=== PATIENT | female | born 1980 | race American Indian/Alaskan Native ===

== ENCOUNTER 2018-07-07 18:51 | Emergency (ER) | payer MEDICAID ==
[2018-07-07] MEDS ORDERED: MOTRIN ONE (20:55)
[2018-07-07] MEDS ORDERED: MOTRIN PO ONE (20:55)
--- NOTE | 2018-07-07 23:13 | XRay Report ---
FINAL REPORT EXAM: XR CHEST 1V AP HISTORY: chest pain w/ cough, productive cough TECHNIQUE: Frontal portable view of the chest Comparison: None FINDINGS: There is no evidence of focal infiltrate, pneumothorax or pleural fluid collection. The cardiac silhouette is normal size. There is a right superior cardiomediastinal convexity of unclear etiology. This can be seen with aneurysms of the ascending thoracic aorta. The bony structures are unremarkable. IMPRESSION: 1. No evidence of an acute pulmonary process. 2. Right superior cardiomediastinal convexity of unclear etiology. This can be seen with aneurysms of the ascending thoracic aorta. PA and lateral views of the chest would be helpful to evaluate for the persistent nature of this finding. Alternatively CT of the chest would be helpful.
[2018-07-08] MEDS ORDERED: NACL 0.9% 1000 ML 1,000 ML IV ONE (00:58)
[2018-07-08] MEDS ORDERED: LIDOCAINE VISCOUS 2% PO ONE (00:58)
[2018-07-08] MEDS ORDERED: NACL 0.9% 1000 ML 2,000 ML IV ONE (00:58)
[2018-07-08] MEDS ORDERED: TYLENOL PO ONE (00:58)
[2018-07-08] MEDS ORDERED: TORADOL IV ONE (00:58)
[2018-07-08] MEDS ORDERED: DECADRON IV ONE (00:59)
--- NOTE | 2018-07-08 01:00 | Emergency Department Report ---
ED General Adult HPI - General Chief complaint: Upper Respiratory Infection Stated complaint: POSS FLU Time Seen by Provider: 07/08/18 00:44 Source: patient, RN notes reviewed Mode of arrival: Ambulatory Limitations: No Limitations - History of Present Illness Initial comments: This is a 37-year-old female who was not known to this provider previously, with the surgical history distantly for hysterectomy. She presents to the ED with a complaint of sore throat, spitting up, cough, subjective fever, body aches, and lower abdominal discomfort. She also has nasal congestion. Her symptoms have been going on for a day and a half. They're constant. They do not radiate anywhere. She denies exacerbating, relieving factors. She indicates positive sore throat, positive pain with swallowing, no dysuria, and no actual vomiting. She denies diarrhea. -: Gradual Location: face, mouth, abdomen, left, right, upper extremity, lower extremity Severity scale (0 -10): 10 Quality: aching Consistency: constant Improves with: medication, rest Worsens with: movement Associated Symptoms: cough, fever/chills, headaches, loss of appetite, malaise, weakness. denies: confusion, chest pain, diaphoresis, nausea/vomiting, rash, seizure, shortness of breath, syncope - Related Data Previous Rx's Medication Instructions Recorded Last Taken Type Acetaminophen [Tylenol Arthritis] 650 mg PO Q6HR PRN #30 tablet.er 07/08/18 Unknown Rx Ibuprofen [Motrin] 600 mg PO Q8H PRN #30 tablet 07/08/18 Unknown Rx Ondansetron [Zofran Odt] 4 mg PO Q8HR PRN #20 tab.rapdis 07/08/18 Unknown Rx Penicillin V Potassium 500 mg PO TID #30 tablet 07/08/18 Unknown Rx Allergies Allergy/AdvReac Type Severity Reaction Status Date / Time hydrocodone Allergy Nausea Verified 07/07/18 20:49 ED Review of Systems ROS: Stated complaint: POSS FLU Other details as noted in HPI Comment: All other systems reviewed and negative ED Past Medical Hx - Past Medical History Previous Medical History?: Yes Hx Asthma: Yes Additional medical history: sleep apnea - Surgical History Past Surgical History?: Yes Additional Surgical History: hysterectomy - Social History Smoking Status: Never Smoker Substance Use Type: None - Medications Home Medications: Home Medications Medication Instructions Recorded Confirmed Last Taken Type Acetaminophen [Tylenol Arthritis] 650 mg PO Q6HR PRN #30 tablet.er 07/08/18 Unknown Rx Ibuprofen [Motrin] 600 mg PO Q8H PRN #30 tablet 07/08/18 Unknown Rx Ondansetron [Zofran Odt] 4 mg PO Q8HR PRN #20 tab.rapdis 07/08/18 Unknown Rx Penicillin V Potassium 500 mg PO TID #30 tablet 07/08/18 Unknown Rx ED Physical Exam - General Limitations: No Limitations General appearance: alert, in no apparent distress - Head Head exam: Present: atraumatic, normocephalic - Eye Eye exam: Present: normal appearance, EOMI. Absent: nystagmus - ENT ENT exam: Present: mucous membranes moist, normal external ear exam, other ( patient has enlarged tonsils with exudates.). Absent: normal exam, normal orophraynx - Neck Neck exam: Present: normal inspection, full ROM, lymphadenopathy. Absent: tenderness, meningismus - Respiratory Respiratory exam: Present: normal lung sounds bilaterally. Absent: respiratory distress - Cardiovascular Cardiovascular Exam: Present: normal rhythm, tachycardia, normal heart sounds. Absent: systolic murmur, diastolic murmur, rubs, gallop - GI/Abdominal GI/Abdominal exam: Present: soft, normal bowel sounds. Absent: distended, tenderness, guarding, rebound, rigid - Extremities Exam Extremities exam: Present: normal inspection, full ROM, normal capillary refill , other (2+ pulses noted in the bilateral upper, lower extremities. Compartments soft. No long bony tenderness. The pelvis is stable.). Absent: tenderness, pedal edema, joint swelling, calf tenderness - Back Exam Back exam: Present: normal inspection, full ROM, paraspinal tenderness. Absent : tenderness, CVA tenderness (R), vertebral tenderness - Neurological Exam Neurological exam: Present: alert, oriented X3, CN II-XII intact, normal gait, other (Extraocular movements intact. Tongue midline. No facial droop. Facial sensation intact to light touch in the V1, V2, V3 distribution bilaterally. 5 and 5 strength in 4 extremities.. Sensation is intact to light touch in 4 extremities.). Absent: motor sensory deficit - Psychiatric Psychiatric exam: Present: normal affect, normal mood - Skin Skin exam: Present: warm, dry, intact, normal color. Absent: rash ED Course Vital Signs 07/07/18 07/08/18 20:44 01:22 Temperature 100.2 F H 98.4 F Pulse Rate 130 H 60 Respiratory 20 16 Rate Blood Pressure 136/95 Blood Pressure 110/71 [Right] O2 Sat by Pulse 100 Oximetry - Reevaluation(s) Reevaluation #1: 07/08/18 02:45 Patient is sleeping comfortably in the emergency department. Her tachycardia is resolved. She is tolerating liquid feeds. Her urinalysis is reviewed and appreciated. She does not endorse any irritative or obstructive urinary symptoms. This is most likely bacteriuria that is not symptomatic. In the unlikely event that patient has a concomitant UTI with strep pharyngitis , penicillin may cover it. She is suitable for discharge with outpatient follow -up. ED Medical Decision Making - Lab Data Vital Signs 07/07/18 07/08/18 20:44 01:22 Temperature 100.2 F H 98.4 F Pulse Rate 130 H 60 Respiratory 20 16 Rate Blood Pressure 136/95 Blood Pressure 110/71 [Right] O2 Sat by Pulse 100 Oximetry - Radiology Data Radiology results: report reviewed, image reviewed Two-view x-ray of the chest was negative for acute disease. - Medical Decision Making Differential diagnosis, including but not limited to: Strep, viral syndrome, pneumonia, urinary tract infection, influenza-like illness Assessment and plan: 37-year-old female with low-grade fever, tachycardia, body aches, no abdominal tenderness, supple neck, no meningeal signs, most likely strep. Patient had a positive strep screen. She was treated supportively and symptomatically with IV fluids, acetaminophen, Decadron, viscous lidocaine, ketorolac. She was initially tachycardic but felt improved. She is very well- appearing, has a full conversation with her and myself, and is nontoxic appearing and walks with a steady gait. Based on her history and physical, I do not suspect occult bacteremia. Patient will be discharged with appropriate pain medication, and penicillin. Critical care attestation.: If time is entered above; I have spent that time in minutes in the direct care of this critically ill patient, excluding procedure time. ED Disposition Clinical Impression: Pharyngitis Qualifiers: Pharyngitis/tonsillitis etiology: unspecified etiology Qualified Code(s): J02.9 - Acute pharyngitis, unspecified Disposition: DC-01 TO HOME OR SELFCARE Is pt being admited?: No Does the pt Need Aspirin: No Condition: Stable Instructions: Strep Throat (ED) Additional Instructions: Take the pain medication as needed/directed. Take nausea medication as needed/ directed. Take the antibiotics as directed. Do not return to work until cleared by a primary care doctor. Advance diet as tolerated, and drink plenty of fluids. Return to the ER right away with new pain, worsened pain, migration of pain, projectile vomiting, change in mental status, confusion, inability to tolerate liquid feeds. The urinalysis suggested bacteria in the urine. This is unlikely to be causing patient's symptoms, however patient should follow-up with her primary care doctor within the next 7-10 days for repeat evaluation. Prescriptions: Acetaminophen [Tylenol Arthritis] 650 mg PO Q6HR PRN #30 tablet.er PRN Reason: Pain Ibuprofen [Motrin] 600 mg PO Q8H PRN #30 tablet PRN Reason: Pain Ondansetron [Zofran Odt] 4 mg PO Q8HR PRN #20 tab.rapdis PRN Reason: Nausea Penicillin V Potassium 500 mg PO TID #30 tablet Referrals: [facility] [Provider Group] - 3-5 Days
[2018-07-08] MEDS ORDERED: MOTRIN ONE (01:36)
--- NOTE | 2018-07-08 02:21 | XRay Report ---
FINAL REPORT EXAM: XR CHEST ROUTINE 2V HISTORY: cough fever TECHNIQUE: 2 views of the chest. PRIORS: Portable chest performed earlier on the same day FINDINGS: The cardiomediastinal silhouette appears normal. The lungs are clear. The bones and soft tissues are unremarkable. IMPRESSION: No evidence of acute cardiopulmonary disease
[2018-07-08 02:30] LABS: Bacteria,Urine 2+ /HPF (Negative); Bilirubin,Urine NEG (Negative); Blood,Urine NEG (Negative); Mucus,Urine 3+ /HPF
[2018-07-08 02:32] LABS: Color,Urine Yellow (Yellow)
[2018-07-08 02:53] VITALS: BP 130/90
== END 2018-07-08 03:18 | disposition home or self-care (01) ==
LOC: ED 18:51
DX: J02.9 Acute pharyngitis, unspecified (principal); J45.909 Unspecified asthma, uncomplicated; Z90.710 Acquired absence of both cervix and uterus; Z88.4 Allergy status to anesthetic agent
CPT/HCPCS: 71045; 71046; 81001; 87430; 96374; 96375; 99284; J1100; J1885; J7030

== ENCOUNTER 2019-06-24 10:21 | Outpatient (CLI) | payer MEDICAID ==
--- NOTE | 2019-06-24 11:17 | Ultrasound Report ---
EXAMINATION: Right Targeted Breast Ultrasound, 06/24/2019 INDICATION: Focal pain in the right upper outer quadrant. COMPARISON: None. FINDINGS: Targeted ultrasound evaluation was performed of the area of interest. There is heterogeneo us fibroglandular tissue. I see no evidence of a cystic or solid mass. No posterior shadowing, distor tion or other abnormality is identified.. IMPRESSION: Follow up recommendation: Unless otherwise clinically indicated, recommend patient return to routine screening mammography at age 42. BI-RADS Category 1: Negative. Signer Name: Brian Ayala MD Signed: 06/24/2019 11:13 AM Workstation Name: [id number]
== END 2019-06-24 10:22 | disposition home or self-care (01) ==
LOC: US 10:21
PROVIDERS: ATTEND Family Medicine
DX: N64.4 Mastodynia (principal); J45.909 Unspecified asthma, uncomplicated; Z90.710 Acquired absence of both cervix and uterus